=== PATIENT | female | born 1960 | race Caucasian/White ===

== ENCOUNTER 2020-05-07 16:00 | Outpatient (CLI) | payer OTHER, SELFPAY | END 2020-05-07 16:01 | disposition home or self-care (01) | LOC: SLEEP 05-08 11:35 | PROVIDERS: Visit Provider Nurse Practitioner | DX: R06.83 Snoring (principal); R53.83 Other fatigue; G47.33 Obstructive sleep apnea (adult) (pediatric) | CPT/HCPCS: G0399 ==

== ENCOUNTER 2021-02-02 09:09 | Outpatient (CLI) | payer OTHER, SELFPAY ==
[2021-02-02 10:17] LABS: Alanine Aminotransferase 19 U/L (0-33); Aspartate Amino Transferase 18 U/L (0-32)
== END 2021-02-02 09:10 | disposition home or self-care (01) ==
PROVIDERS: Visit Provider Podiatrist Foot & Ankle Surgery
DX: L60.3 Nail dystrophy (principal)
CPT/HCPCS: 36415; 84450; 84460; 87210

== ENCOUNTER 2021-06-05 08:13 | Outpatient (CLI) | payer OTHER, SELFPAY ==
[2021-06-05 09:11] LABS: Alanine Aminotransferase 16 U/L (0-33); Aspartate Amino Transferase 16 U/L (0-32)
== END 2021-06-05 08:14 | disposition home or self-care (01) ==
LOC: LAB 08:34
PROVIDERS: Visit Provider Podiatrist Foot & Ankle Surgery
DX: B35.1 Tinea unguium (principal)
CPT/HCPCS: 36415; 84450; 84460

== ENCOUNTER → 2021-09-25 11:10 | Outpatient (BNVA) | payer OTHER, SELFPAY | PROVIDERS: Visit Provider Obstetrics & Gynecology | DX: R30.0 Dysuria (principal); R35.0 Frequency of micturition | CPT/HCPCS: 81000; 87086 ==

== ENCOUNTER → 2022-08-03 09:57 | Outpatient (BNVA) | payer OTHER, SELFPAY | PROVIDERS: PCP Family Medicine; Visit Provider Family Medicine | DX: Z01.89 Encounter for other specified special examinations (principal); I10 Essential (primary) hypertension; E66.9 Obesity, unspecified; Z13.6 Encounter for screening for cardiovascular disorders; Z23 Encounter for immunization; Z12.31 Encounter for screening mammogram for malignant neoplasm of breast | CPT/HCPCS: 80053; 80061; 83036; 85025 ==

== ENCOUNTER → 2023-07-08 11:23 | Outpatient (BNVA) | payer OTHER, SELFPAY | PROVIDERS: PCP Family Medicine; Visit Provider Family Medicine | DX: I10 Essential (primary) hypertension (principal); M47.818 Spondylosis without myelopathy or radiculopathy, sacral and sacrococcygeal region; J34.3 Hypertrophy of nasal turbinates; F33.41 Major depressive disorder, recurrent, in partial remission; R09.81 Nasal congestion | CPT/HCPCS: 80053; 80061; 85025 ==

== ENCOUNTER → 2024-04-05 15:10 | Outpatient (BNVA) | payer OTHER, SELFPAY | PROVIDERS: PCP Family Medicine; Visit Provider Family Medicine | DX: I10 Essential (primary) hypertension (principal); D64.9 Anemia, unspecified; R53.82 Chronic fatigue, unspecified; M25.50 Pain in unspecified joint; R79.89 Other specified abnormal findings of blood chemistry; M47.818 Spondylosis without myelopathy or radiculopathy, sacral and sacrococcygeal region; J34.3 Hypertrophy of nasal turbinates | CPT/HCPCS: 80053; 80061; 82607; 82728; 83550; 84443; 85025; 85651; 86140 ==

== ENCOUNTER 2024-04-25 11:54 | Outpatient (CLI) | payer OTHER, SELFPAY ==
--- NOTE | 2024-04-25 12:00 | MM_ITS ---
WS: [id number] BILATERAL 3D TOMOSYNTHESIS DIGITAL SCREENING MAMMOGRAPHY WITH CAD CLINICAL INFORMATION: Z12.31 - Encounter for screening mammogram for malignant ... HISTORY: Screening mammogram. No current complaints. COMPARISON: 2018 TECHNIQUE: Bilateral CC and MLO views. FINDINGS: Scattered fibroglandular densities bilaterally. Focal asymmetric density measuring 7 mm subareolar RI GHT breast appears new compared to previous. Recommend further evaluation with spot compression views and ultrasound. This is best seen on the cc view just lateral and inferior to the nipple. A few incidental punctate calcifications. Vascular calcifications. Unremarkable LEFT breast MM/[place] [id number] IMPRESSION: BI-RADS: 0-Incomplete: Need additional imaging evaluation FOLLOW UP: Need Additional Imaging Recommend RIGHT breast diagnostic mammography and ultrasound.
== END 2024-04-25 11:55 | disposition home or self-care (01) ==
LOC: RAD 11:55
PROVIDERS: PCP Family Medicine; Visit Provider Family Medicine
DX: Z12.31 Encounter for screening mammogram for malignant neoplasm of breast (principal); R92.323 Mammographic fibroglandular density, bilateral breasts; R92.1 Mammographic calcification found on diagnostic imaging of breast; N64.89 Other specified disorders of breast
CPT/HCPCS: 77063; 77067

== ENCOUNTER 2024-06-07 13:29 | Outpatient (CLI) | payer OTHER, SELFPAY ==
--- NOTE | 2024-06-07 13:36 | MM_ITS ---
WS: [id number] RIGHT 3D TOMOSYNTHESIS DIGITAL MAMMOGRAPHY WITH CAD CLINICAL INFORMATION: Abnormal mammogram right breast HISTORY: Additional views COMPARISON: 04/25/2024 TECHNIQUE: 3 views of the right breast were obtained. FINDINGS: Scattered fibroglandular densities of the right breast. Again seen is the 6 mm focal nodular asymmetr ic density subareolar RIGHT breast. This persists on spot compression views. Ultrasound is pending. ULTRASOUND BREAST RIGHT TECHNIQUE: Ultrasound right breast focused area of concern. CLINICAL INFORMATION: Abnormal mammogram right breast FINDINGS: Subareolar RIGHT breast ultrasound. A few incidental dilated ducts compatible with ductal ectasia. No suspicious cystic or solid lesions to target for biopsy. Findings are benign. Recommend return to an nual screening mammography. MM/[place] [id number] IMPRESSION: BI-RADS: 2-Benign FOLLOW UP: 1 Year Follow-up
== END 2024-06-07 13:30 | disposition home or self-care (01) ==
PROVIDERS: PCP Family Medicine; Visit Provider Family Medicine
DX: R92.8 Other abnormal and inconclusive findings on diagnostic imaging of breast (principal); R92.323 Mammographic fibroglandular density, bilateral breasts
CPT/HCPCS: 76642; 77061; G0279

== ENCOUNTER → 2024-11-01 11:46 | Outpatient (BNVA) | payer MEDICARE, OTHER, SELFPAY | PROVIDERS: PCP Family Medicine; Visit Provider Family Medicine | DX: D64.9 Anemia, unspecified (principal); I10 Essential (primary) hypertension; R53.82 Chronic fatigue, unspecified; R79.89 Other specified abnormal findings of blood chemistry; R60.1 Generalized edema; E55.9 Vitamin D deficiency, unspecified | CPT/HCPCS: 80053; 80061; 82306; 82607; 82728; 82746; 83036; 83550; 84439; 84443; 85025 ==

== ENCOUNTER → 2025-06-12 10:39 | Outpatient (BNVA) | payer MEDICARE, OTHER, SELFPAY | PROVIDERS: PCP Family Medicine; Visit Provider Podiatrist Foot & Ankle Surgery | DX: M79.671 Pain in right foot (principal); M79.672 Pain in left foot; Q82.8 Other specified congenital malformations of skin; M21.611 Bunion of right foot; M21.612 Bunion of left foot; M19.071 Primary osteoarthritis, right ankle and foot; M19.072 Primary osteoarthritis, left ankle and foot; B35.1 Tinea unguium | CPT/HCPCS: 17110; 73630; 99204 ==

== ENCOUNTER → 2025-07-24 12:04 | Outpatient (BNVA) | payer MEDICARE, OTHER, SELFPAY | PROVIDERS: PCP Family Medicine; Visit Provider Podiatrist Foot & Ankle Surgery | DX: B35.1 Tinea unguium (principal) | CPT/HCPCS: 36415; 80053 ==

== ENCOUNTER 2025-08-02 07:43 | Outpatient (CLI) | payer MEDICARE, OTHER, SELFPAY | END 2025-08-02 07:44 | disposition home or self-care (01) | LOC: SPT 07:44 | PROVIDERS: PCP Family Medicine; Visit Provider Podiatrist Foot & Ankle Surgery | DX: Z46.89 Encounter for fitting and adjustment of other specified devices (principal); M19.079 Primary osteoarthritis, unspecified ankle and foot | CPT/HCPCS: L3030 ==